=== PATIENT | male | born 1955 | race Caucasian/White ===

== ENCOUNTER 2017-01-01 07:29 | Day surgery (SDC) | payer BC ==
--- NOTE | ~2017-01-01 | EGD ---
EGD REPORT [facility] [address] [address] NAME: TARAN BROOKS : [birth year] STATUS : REG [facility] PAT#: [id number] AGE: 61 ADM/REG DATE : 01/01/17 MR#: [id number] REPORT SERV DATE: 01/01/17 DICTATED BY: ROHIT LEVY DATE: 01/01/17 REPORT STATUS : Draft [facility]: [facility] DATE: 01/01/17 Endoscopy Center Patient Name: Taran Brooks Date of : 1955 Attending MD: ROHIT LEVY MD Procedure Date No Time: 01/01/2017 Procedure: Upper GI endoscopy Indications: Epigastric abdominal pain, Dyspepsia Referring MD: NURIS MENJIVAR Medicines: Propofol per Anesthesia Complications: No immediate complications. Procedure: Pre-Anesthesia Assessment: - ASA Grade Assessment: III - A patient with severe systemic disease. After obtaining informed consent, the endoscope was passed under direct vision. Throughout the procedure, the patient's blood pressure, pulse, and oxygen saturations were monitored continuously. The GIF [id number] was introduced through the mouth, and advanced to the second part of duodenum. The upper GI endoscopy was accomplished without difficulty. The patient tolerated the procedure well. Findings: The examined esophagus was normal. Diffuse moderate inflammation characterized by erosions, erythema and friability was found in the stomach. Biopsies were taken with a cold forceps for histology. Multiple 4 mm sessile polyps with no stigmata of recent bleeding were found in the entire examined stomach. Biopsies were taken with a cold forceps for histology. The examined duodenum was normal. Impression: - Normal esophagus. - Chronic gastritis. Biopsied. - Multiple gastric polyps. Biopsied. - Normal examined duodenum. Recommendation: - Discharge patient to home (ambulatory). - Return to my office in 3 weeks. Procedure Code(s): --- Professional --- 47116, Esophagogastroduodenoscopy, flexible, transoral; with biopsy, single or multiple EGD REPORT [facility] [address] [place] [address]. [address] NAME: TARAN BROOKS : [birth year] STATUS : REG [facility]#: [id number] AGE: 61 ADM/REG DATE : 01/01/17 MR#: [id number] REPORT SERV DATE: 01/01/17 DICTATED BY: ROHIT LEVY. DATE: 01/01/17 REPORT STATUS : Draft TRANSCRIBED BY: [employer] DATE: 01/01/17 Diagnosis Code(s): --- Professional --- K29.50, Unspecified chronic gastritis without bleeding K31.7, Polyp of stomach and duodenum R10.13, Epigastric pain K30, Functional dyspepsia CPT copyright 2013 [employer]. All rights reserved. The codes documented in this report are preliminary and upon pipe or steam fitter furnace installer review may be revised to meet current compliance requirements. Rohit Levy MD ROHIT LEVY MD 01/01/2017 8:49 AM This report has been signed electronically. Number of Addenda: 0 Note Initiated On: 01/01/2017 8:24 AM Scope Withdrawal Time 0 hours 0 minutes 0 seconds [address] [place] [address]
--- NOTE | ~2017-01-01 | EGD ---
EGD REPORT [facility] [address] [address] NAME: TARAN BROOKS : [birth year] STATUS : REG [facility] [place] PAT#: [id number] AGE: 61 ADM/REG DATE : 01/01/17 MR#: [id number] REPORT SERV DATE: 01/01/17 DICTATED BY: ROHIT LEVY DATE: 01/01/17 REPORT STATUS : Draft [facility]ANSCRIBED [facility]: [facility] DATE: 01/01/17 Endoscopy Center Patient Name: Taran Brooks Date of : 1955 Attending MD: ROHIT LEVY MD Procedure Date No Time: 01/01/2017 Procedure: Colonoscopy Indications: Generalized abdominal pain Referring MD: NURIS MENJIVAR Medicines: Propofol per Anesthesia Complications: No immediate complications. Procedure: Pre-Anesthesia Assessment: - ASA Grade Assessment: III - A patient with severe systemic disease. After I obtained informed consent, the scope was passed under direct vision. Throughout the procedure, the patient's blood pressure, pulse, and oxygen saturations were monitored continuously. The PCF [id number] was introduced through the anus and advanced to the cecum, identified by appendiceal orifice and ileocecal valve. The colonoscopy was performed without difficulty. The patient tolerated the procedure well. The quality of the bowel preparation was good. Findings: The perianal and digital rectal examinations were normal. A sessile polyp was found in the ascending colon. The polyp was 4 mm in size. The polyp was removed with a cold biopsy forceps. Resection and retrieval were complete. A sessile polyp was found in the transverse colon. The polyp was 4 mm in size. The polyp was removed with a cold biopsy forceps. Resection and retrieval were complete. A sessile polyp was found in the descending colon. The polyp was 4 mm in size. The polyp was removed with a cold biopsy forceps. Resection and retrieval were complete. A sessile polyp was found in the sigmoid colon. The polyp was 4 mm in size. The polyp was removed with a cold biopsy forceps. Resection and retrieval were complete. Many medium-mouthed diverticula were found in the recto-sigmoid colon, in the sigmoid colon, in the descending colon and at the hepatic flexure. Impression: - One 4 mm polyp in the ascending colon. Resected and retrieved. - One 4 mm polyp in the transverse colon. Resected and retrieved. EGD REPORT [address] [place]. [address] NAME: TARAN BROOKS : [birth year] STATUS : REG [facility]#: [id number] AGE: 61 ADM/REG DATE : 01/01/17 MR#: [id number] REPORT SERV DATE: 01/01/17 DICTATED BY: ROHIT LEVY DATE: 01/01/17 REPORT STATUS : Draft TRANSCRIBED BY: [employer] SERVICES DATE: 01/01/17 - One 4 mm polyp in the descending colon. Resected and retrieved. - One 4 mm polyp in the sigmoid colon. Resected and retrieved. - Diverticulosis in the recto-sigmoid colon, in the sigmoid colon, in the descending colon and at the hepatic flexure. Recommendation: - Discharge patient to home (ambulatory). - Return to my office in 3 weeks. Procedure Code(s): --- Professional --- 75663, Colonoscopy, flexible, proximal to splenic flexure; with biopsy, single or multiple Diagnosis Code(s): --- Professional --- D12.5, Benign neoplasm of sigmoid colon D12.4, Benign neoplasm of descending colon D12.3, Benign neoplasm of transverse colon D12.2, Benign neoplasm of ascending colon K57.30, Diverticulosis of large intestine without perforation or abscess without bleeding R10.84, Generalized abdominal pain CPT copyright 2013 [employer]. All rights reserved. The codes documented in this report are preliminary and upon health information coder review may be revised to meet current compliance requirements. Rohit Levy MD ROHIT LEVY MD 01/01/2017 8:52 AM This report has been signed electronically. Number of Addenda: 0 Note Initiated On: 01/01/2017 8:23 AM Scope Withdrawal Time 0 hours 6 minutes 40 seconds [address] [id number]
[~2017-01-01 07:29] MED LIST: B121000P SC; CARDU4 PO; CLARIT10 PO; DSS PO; MORPHINE; PEP20 PO; PEPCID40 MG OR; PR25 PO; PRILO PO; STOOL SOFTEN100 MG PO; VITAMIN B-122500 MCG SL; VITAMIN D1000 UNI1 PO; VITAMIN D31000 UNIT PO; VITC500 PO; [UNRECOGNIZED DRUG - CODE] IM
== END 2017-01-01 23:59 | disposition home health service (06) ==
LOC: DMU 07:29
PROVIDERS: Internal Medicine Gastroenterology
PROC: 0DBN8ZX Excision of Sigmoid Colon, Via Natural or Artificial Opening Endoscopic, Diagnostic (ICD-10-PCS; 2017-01-01)
PROC: 0DBM8ZX Excision of Descending Colon, Via Natural or Artificial Opening Endoscopic, Diagnostic (ICD-10-PCS; 2017-01-01)
PROC: 0DBL8ZX Excision of Transverse Colon, Via Natural or Artificial Opening Endoscopic, Diagnostic (ICD-10-PCS; 2017-01-01)
PROC: 0DB68ZX Excision of Stomach, Via Natural or Artificial Opening Endoscopic, Diagnostic (ICD-10-PCS; principal; 2017-01-01 10:30)
PROC: 0DBK8ZX Excision of Ascending Colon, Via Natural or Artificial Opening Endoscopic, Diagnostic (ICD-10-PCS; 2017-01-01 10:30)
DX: D12.2 Benign neoplasm of ascending colon (principal); D12.4 Benign neoplasm of descending colon; K63.5 Polyp of colon; K31.7 Polyp of stomach and duodenum; K57.30 Diverticulosis of large intestine without perforation or abscess without bleeding; I10 Essential (primary) hypertension; G47.33 Obstructive sleep apnea (adult) (pediatric); K21.9 Gastro-esophageal reflux disease without esophagitis; Z88.0 Allergy status to penicillin; Z88.5 Allergy status to narcotic agent; Z88.8 Allergy status to other drugs, medicaments and biological substances; Z87.891 Personal history of nicotine dependence; Z79.899 Other long term (current) drug therapy; Z98.890 Other specified postprocedural states; Z99.81 Dependence on supplemental oxygen
CPT/HCPCS: 88305